=== PATIENT | male | born 1995 ===

== ENCOUNTER 2017-03-08 20:32 | Emergency (ER) | payer OTHER ==
[2017-03-08 21:13] VITALS: BP 156/95; PULSE 78; RESP 20; TEMP 98.5; O2SAT 97
--- NOTE | 2017-03-08 22:43 | C.PDOC ---
History Of Present Illness A 21 year old male presents to the emergency room with complaints of a deformity to the nose that occurred today. Patient reports that he was playing with his sister when she banged her head against the right side of his nose. Patient denies any bleeding, swelling, redness, discharge, headaches, dizziness , visual changes, vomiting, or any other complaints. Time Seen by Provider: 03/08/17 22:12 Chief Complaint (Nursing): ENT Problem History Per: Patient History/Exam Limitations: None Onset/Duration Of Symptoms: Hrs Current Symptoms Are (Timing): Still Present Quality (Ear): denies: Redness, Swelling, Discharge Symptoms Have Been: Continuous Severity: Mild Past Medical History Reviewed: Historical Data, Nursing Documentation, Vital Signs Vital Signs: Last Vital Signs Temp 98.5 F 03/08/17 21:09 Pulse 78 03/08/17 21:09 Resp 20 03/08/17 21:09 BP 156/95 H 03/08/17 21:09 Pulse Ox 97 03/08/17 22:46 Family History: States: No Known Family Hx - Social History Hx Alcohol Use: No Hx Substance Use: No - Immunization History Hx Tetanus Toxoid Vaccination: No Hx Influenza Vaccination: No Hx Pneumococcal Vaccination: No Review Of Systems Eyes: Negative for: Vision Change ENT: Positive for: Nose Pain. Negative for: Nose Discharge Gastrointestinal: Negative for: Vomiting Neurological: Negative for: Weakness, Numbness, Headache, Dizziness Physical Exam - Physical Exam Appears: Non-toxic, No Acute Distress Skin: Normal Color, Warm, Dry Head: Atraumatic, Normacephalic Eye(s): bilateral: Normal Inspection, PERRL Ear(s): Bilateral: Normal Nose: No Discharge, No Epistaxis (No bleeding from either nare.), Deformity ( Nose appears shifted to the left), Tenderness (Tenderness along nasal bridge), No Septal Hematoma Oral Mucosa: Moist Extremity: Normal ROM, No Tenderness Neurological/Psych: Oriented x3, Normal Speech, Normal Cognition, Normal Motor, Normal Sensation ED Course And Treatment O2 Sat by Pulse Oximetry: 97 Medical Decision Making Medical Decision Makin21 y/o male with nose pain after trauma. questionable fx seen on xray. will d/c pt with ent f/u Disposition Counseled Patient/Family Regarding: Studies Performed, Diagnosis, Need For Followup - Disposition Disposition: HOME/ ROUTINE Disposition Time: 23:28 Condition: STABLE Additional Instructions: Apply cold compress to nose several times a day to reduce swelling. Follow up in a few days with ENT doctor. Call for an appointment. Tylenol mor motrin for pain if needed. Instructions: Nasal Fracture (ED) - Clinical Impression Clinical Impression: Nasal injury - Scribe Statement The provider has reviewed the documentation as recorded by the Scribe Delroy Andujar All medical record entries made by the Scribe were at my direction and personally dictated by me. I have reviewed the chart and agree that the record accurately reflects my personal performance of the history, physical exam, medical decision making, and the department course for this patient. I have also personally directed, reviewed, and agree with the discharge instructions and disposition.
--- NOTE | 2017-03-09 10:03 | RAD ---
PROCEDURE: Nasal bones dated 03/08/2017 HISTORY: nasal trauma, right side COMPARISON: No prior study available comparison. TECHNIQUE: AP and right/left lateral views of the nasal bones performed. FINDINGS: Current study reveals a very tiny lucency along the distal aspect of the left nasal bones that could represent nondisplaced fracture. A 2nd lucency slightly more proximal which appears to incompletely traverse the superior half of the nasal bones could represent nondisplaced fracture versus a vascular groove. The anterior nasal spine appears intact. IMPRESSION: There are 2 small lucencies seen traversing the left nasal bones in 2 locations, both of which could represent nondisplaced fractures however the more proximal lucency extends only through the superior half of the nasal bones and therefore could represent vascular groove.
== END 2017-03-08 23:37 | disposition home or self-care (01) ==
LOC: C.ER 20:32
DX: S09.92XA Unspecified injury of nose, initial encounter (principal); W50.0XXA Accidental hit or strike by another person, initial encounter; Y93.89 Activity, other specified; Y92.009 Unspecified place in unspecified non-institutional (private) residence as the place of occurrence of the external cause